=== PATIENT | male | born 1945 | race Caucasian/White ===

== ENCOUNTER 2016-10-05 18:50 | Emergency (ER) | payer MEDICARE ==
[~2016-10-05] VITALS: Ht 172.7 cm; Wt 77.6 kg
[2016-10-05] MEDS ORDERED: COCAINE TOPICAL SOLN 4%, 4ML ONE (19:45)
[2016-10-05 19:46] LABS: HEMOGLOBIN 15.7 g/dL (13.7-18.0)
[2016-10-05] MEDS ORDERED: COCAINE TOPICAL SOLN 4%, 4ML TP ONE (20:00)
[2016-10-05 21:17] VITALS: BP 164/85
== END 2016-10-05 21:18 | disposition home or self-care (01) ==
LOC: ED 21:04
DX: K08.89 Other specified disorders of teeth and supporting structures (principal)
CPT/HCPCS: 36415; 85025; 85610; 85730; 99284

== ENCOUNTER → 2019-09-14 | Outpatient (CLI) | payer MEDICARE | END | disposition home or self-care (01) | LOC: CFH 13:01 | PROVIDERS: ATTEND Physician Assistant Surgical | DX: M16.11 Unilateral primary osteoarthritis, right hip (principal); N28.89 Other specified disorders of kidney and ureter; N20.0 Calculus of kidney; M47.816 Spondylosis without myelopathy or radiculopathy, lumbar region | CPT/HCPCS: 74018 ==

== ENCOUNTER 2019-12-01 14:46 | Outpatient (CLI) | payer MEDICARE | END 2019-12-01 23:59 | disposition home or self-care (01) | LOC: CFH 14:46 | PROVIDERS: ATTEND Physician Assistant Surgical | DX: N28.1 Cyst of kidney, acquired (principal); N20.0 Calculus of kidney | CPT/HCPCS: 74176 ==

== ENCOUNTER → 2020-08-19 | Outpatient (CLI) | payer MEDICARE | END | disposition home or self-care (01) | LOC: RAD 10:49 | PROVIDERS: ATTEND Student in an Organized Health Care Education/Training Program | DX: N28.1 Cyst of kidney, acquired (principal); N20.0 Calculus of kidney; R94.4 Abnormal results of kidney function studies; N28.89 Other specified disorders of kidney and ureter | CPT/HCPCS: 76770 ==

== ENCOUNTER → 2020-12-12 | Outpatient (CLI) | payer MEDICARE | END | disposition home or self-care (01) | LOC: RAD 11:10 | PROVIDERS: ATTEND Physician Assistant Surgical | DX: M88.851 Osteitis deformans of right thigh (principal); N20.0 Calculus of kidney | CPT/HCPCS: 74018 ==